=== PATIENT | female | born 1950 | race Two or more races ===

== ENCOUNTER 2017-01-25 23:50 | Inpatient (IN) | payer OTHER ==
--- NOTE | ~2017-01-25 | CN ---
Consultation Report [facility] [address] [place]. [address] NAME: ANÍBAL GATES : 52 STATUS : ADM IN PAT#: [id number] AGE: 66 ADM/REG DATE : 01/26/17 MR#: [id number] REPORT SERV DATE: 01/26/17 DICTATED BY: MART FLORES DATE: 01/26/17 REPORT STATUS : Draft TRANSCRIBED BY: MODL DATE: 01/26/17 GI CONSULTATION DATE OF CONSULTATION: 01/26/2017 REASON FOR CONSULTATION: Recurrent C difficile. HISTORY OF PRESENT ILLNESS: Ms. Aníbal Gates is a 66-year-old female patient, who had originally been seen by Dr. Tan over at [facility] in 11/2016 for lower GI bleeding. She presents to [facility] today with recurrent abdominal pain, nausea with vomiting. During her hospitalization at [facility], she underwent a colonoscopy on 12/05/[address] Tan, showed some diverticulosis, mild nonspecific colitis and internal hemorrhoids. Biopsies were taken, which showed no definite chronic colitis. C difficile tests at that point in time were negative; however, she suffered a prolonged hospitalization in 12/2016. On 12/30/2016, she was still inpatient, diarrhea had returned, and she tested positive for C difficile at that point in time. It appears by review of records, she was treated with Flagyl as well as looking at the records, it looks like she had C difficile positivity in early 11/2016 and was treated with Flagyl. It is hard to obtain much history from Ms. Gates. Presently, she is nauseous. She is spitting up white phlegm and complains of abdominal discomfort in the epigastric periumbilical region. She did have a CT scan done on admission, which was noncontrasted, which shows extensive advanced atherosclerotic changes, body anasarca, trace pleural fluid on the right with some ascites, bibasilar atelectasis, cardiomegaly, moderate sized hiatal hernia. No GI or obstruction. She had a colon wall which was thickened, suggesting a low protein state versus less likely colitis. However, secondary to her history of C difficile and recurrent diarrhea, her stool was checked again for C difficile in the emergency room and was found to be positive. Subsequently, she was admitted. She does have a history of type 2 diabetes, poorly controlled; end-stage renal disease, presently undergoing hemodialysis; as well as cardiac arrest, hepatitis C. I have discussed with the patient. We will plan to add IV Flagyl to the regimen of vancomycin. I will also obtain a mesenteric ultrasound to rule out any mesenteric ischemia as contributing to her abdominal pain. Infectious Disease has also been consulted to see her for the questionable possibility of stool transplantation. PAST MEDICAL HISTORY: Positive for recurrent C difficile colitis, hepatitis C, end-stage renal disease with dialysis dependence, hypertensive nephrosclerosis, type 2 diabetes, diabetic neuropathy, cardiac arrest x2, mild anoxic brain injury status post cardiac arrest, pericardial effusion, pericardiocentesis, hyperlipidemia, peripheral vascular disease with a left emdqa-hdm-iyby amputation, C difficile, and hypothyroidism. SURGICAL HISTORY: Unable to be obtained. SOCIAL HISTORY: Currently lives with her daughter. No current alcohol, tobacco, or illicit. FAMILY HISTORY: Noncontributory from a GI standpoint. Consultation Report [address] [address] NAME: ANÍBAL GATES : 52 STATUS : ADM IN [facility]#: [id number] AGE: 66 ADM/REG DATE : 01/26/17 MR#: [id number] REPORT SERV DATE: 01/26/17 DICTATED BY: MART FLORES DATE: 01/26/17 REPORT STATUS : Draft TRANSCRIBED BY: ADELITA DATE: 01/26/17 ALLERGIES: SHE HAS NO KNOWN ALLERGIES. HOME MEDICATIONS: Coreg, Bentyl, Benadryl, Pepcid, Neurontin, Lantus, Humalog, Synthroid, lidocaine cream, Imodium, Singulair, Endocet, Renvela, and Restoril. REVIEW OF SYSTEMS: Somewhat limited secondary to the patient's ill status, chronic nausea, vomiting, crying out in abdominal pain. PHYSICAL EXAMINATION: VITAL SIGNS: She has a temperature of 97.4, pulse of 101, respirations 18, blood pressure 153/69. NEURO: Reveals a very ill-appearing female resting in bed. GENERAL: She is in distress. She is semi-cooperative. She is in distress secondary to nausea. She is also spitting up bile. She is awake and alert, unable to assess orientation at this time. HEAD, EARS, EYES, NOSE, AND THROAT: Anicteric. Pupils equal, round, reactive to light and accommodation. Normocephalic and atraumatic. NECK: Supple. No JVD. LUNGS: Diminished with poor inspiratory effort noted. CARDIOVASCULAR SYSTEM: Regular rate and rhythm, but tachycardic. ABDOMEN: Soft and nondistended with mild tenderness to palpation to the periumbilical area. She has hypoactive bowel sounds. No organomegaly appreciated. EXTREMITIES: Notable for left BKA. SKIN: Dry and intact. PERTINENT LABORATORY DATA: Sodium 136, potassium 3.6, BUN is 17, creatinine is 3.43. White count 15.4, hemoglobin 9.8, hematocrit 31.5. CO2 is 21. Total bilirubin is 0.2, alkaline phosphatase 205, ALT 10, AST 16, lipase 47. ASSESSMENT: 1. Recurrent Clostridium difficile. 2. Abdominal pain. 3. Nausea with vomiting. 4. End-stage renal disease, on dialysis. 5. Peripheral vascular disease, with history of left byasx-clv-xjse amputation. 6. Type 2 diabetes, poor controlled. 7. History of cardiac arrest x2, with mild anoxic brain injury. 8. Hepatitis C. PLAN: 1. Continue vanco, add IV Flagyl. 2. Schedule Zofran. 3. Clear liquid diet, advance as tolerated. Consultation Report [address] [address] NAME: ANÍBAL GATES : 52 STATUS : ADM IN [facility]#: [id number] AGE: 66 ADM/REG DATE : 01/26/17 MR#: [id number] REPORT SERV DATE: 01/26/17 DICTATED BY: MART FLORES DATE: 01/26/17 REPORT STATUS : Draft TRANSCRIBED BY: ADELITA DATE: 01/26/17 4. Mesenteric ultrasound to rule out any mesenteric ischemia as a culprit of abdominal pain. 5. Bentyl. 6. Increase her Pepcid to b.i.d. We will follow. YOLY/ADELITA BARBARA Gomez / [id number] CC: Maikel Puentes M.D.
--- NOTE | ~2017-01-25 | HP ---
History And Physical [address] [place]. [address] NAME: ANÍBAL GATES : 52 STATUS : ADM IN [facility]#: [id number] AGE: 66 ADM/REG DATE : 01/26/17 MR#: [id number] REPORT SERV DATE: 01/26/17 DICTATED BY: DATE: REPORT STATUS : Draft TRANSCRIBED BY: MODL DATE: 01/26/17 DATE OF ADMISSION: 01/26/2017 CHIEF COMPLAINT: Abdominal pain, diarrhea, nausea, vomiting. HISTORY OF PRESENT ILLNESS: Ms Gates is a 66-year-old female, who dialyzes Wednesday, Wednesday, Wednesday at [facility]. She moved here from [place] in November and since has been in the hospital at [facility], [place], operated by [facility], and looks like she has had C. diff in November and December. Just prior to the move in 10/2016, she had a prolonged hospitalization with cardiac arrest x2 in October, pericardial effusion, pericardiocentesis. Since being here, she has had C. diff during hospitalization. She has also had pneumonia followed by pleural effusion, was just released a couple weeks ago from [facility]. During that hospitalization, she had thoracentesis and chest tube placement. She presents back to the emergency department yesterday and the report is three to four weeks of nausea, vomiting, diarrhea, and abdominal pain. After discussing with the patient, it seems like the nausea, vomiting have really been present for three to four days. She cannot really quantify how many stools she is having per day for me. She has ongoing nausea, vomiting throughout her exam and she reports subjective fevers. In the emergency department, her white blood cell count was elevated at 15,000. CT findings were nonspecific for some colitis. Her C. diff came back positive. PAST MEDICAL HISTORY: Recurrent C. diff, pneumonia, anemia, dementia, anoxic brain injury, peripheral vascular disease with left BKA, hypothyroidism, diabetes with neuropathy and gastroparesis, hypertension, cardiac arrest x2 in October, pericardial effusion, hyperlipidemia. SOCIAL HISTORY: She is . Born in [place]. Recently moved here from [place]. No tobacco, alcohol, or illicit drug use. ALLERGIES: NONE. FAMILY MEDICAL HISTORY: I could not obtain from the patient. MEDICATIONS: Coreg, Bentyl, Benadryl, Pepcid, Neurontin, Lantus, Humalog, Synthroid, EMLA cream, Imodium, Singulair, Endocet, Renvela, and Restoril. REVIEW OF SYSTEMS: 12-point review of systems obtained; however, the patient in significant pain and with no significant nausea during exam. PHYSICAL EXAMINATION: VITAL SIGNS: Temp 97.3, blood pressure 150/68, pulse 99, respiratory rate 18, O2 saturation is 97% on 2 L. GENERAL: This is an ill-appearing female. She is awake. She is oriented to place and person. HEENT: Normocephalic, atraumatic. Conjunctivae clear. Sclerae anicteric. Oral mucosa is History And Physical [address] [address] NAME: ANÍBAL GATES : 52 STATUS : ADM IN [facility]#: [id number] AGE: 66 ADM/REG DATE : 01/26/17 MR#: [id number] REPORT SERV DATE: 01/26/17 DICTATED BY: DATE: REPORT STATUS : Draft TRANSCRIBED BY: MODL DATE: 01/26/17 dry. NECK: No lymphadenopathy. Neck veins flat. RESPIRATIONS: Even and unlabored. Breath sounds clear to auscultation. HEART: Rate is regular. She has a faint systolic murmur. No rub or gallop. ABDOMEN: Soft with some mild diffuse tenderness. Bowel sounds are active. No masses or hepatosplenomegaly. BACK: I could not examine as she is currently on the dialysis machine. EXTREMITIES: She has a left BKA without any edema. No edema to the right. NEURO: No focal deficits. She moves about in bed throughout exam, all four extremities. SKIN: No unusual rashes, skin lesions. Mood and affect anxious, but appropriate. PERTINENT LAB AND X-RAYS FINDINGS: Her chest x-ray says fluid overload. On my evaluation, she does have some mild pulmonary edema. Sodium 136, potassium 3.6, chloride 99, CO2 of 21, BUN of 17, creatinine 3.4. Calcium 8.4, magnesium of 1.7, phosphorus 4. Albumin is 2.5. WBC is 15,000, H and H 9 and 28, platelets 496,000. CT of the abdomen with nonspecific findings; mild thickening, most likely colitis. C. diff positive. Her lactic acid was 0.9. IMPRESSION: 1. Abdominal pain. 2. Clostridium difficile colitis, recurrent. 3. Nausea, vomiting. 4. End-stage renal disease. 5. Type 2 diabetes with gastroparesis and neuropathy. 6. Peripheral vascular disease, left below-knee amputation. 7. Hypertension. 8. Status post cardiac arrest x2 in 10/2016. PLAN: Admit, p.o. vancomycin. Ask GI and ID to question if she needs a stool transplant given this recurrent C. diff. When asked if she completed antibiotic therapy, she states she does not know, so I do not know if this is due to failure of antibiotics versus incomplete therapy. Dialyze, antiemetics, pain medicines, usual medicines as appropriate. Further orders and recommendations pending clinical course. JEWELL/ADELITA BARBARA Kendrick / [id number] CC: Maikel Puentes M.D.
--- NOTE | ~2017-01-25 | DS ---
Discharge Summary [facility] [address] [place]. [address] NAME: ANÍBAL CELAYA : 52 STATUS : DIS IN PAT#: [id number] AGE: 66 ADM/REG DATE : 01/26/17 MR#: [id number] REPORT SERV DATE: 02/17/17 DICTATED BY: NIKITA ALEMAN DATE: 02/16/17 REPORT STATUS : Draft TRANSCRIBED BY: ADELITA DATE: 02/16/17 Data Collection from hospitalization DISCHARGE DIAGNOSES: 1. Abdominal pain-resolved. 2. Nausea, vomiting, and diarrhea-resolved. 3. Question of noncompliance. 4. History of below-knee amputation on the left. 5. Type 2 diabetes mellitus. 6. Hypertension. 7. Dementia. 8. Anemia. 9. History of anoxic brain injury. 10.Peripheral vascular disease. 11.Hypothyroidism. 12.Neuropathy. 13.Gastroparesis. 14.History of cardiac arrest x2. 15.Hyperlipidemia. CONSULTATION: BARBARA Gomez PROCEDURES PERFORMED: 1. CT scan of the abdomen and pelvis without contrast, 01/25/2017. 2. Mesenteric Doppler ultrasound, 01/27/2017. 3. Gallbladder ultrasound, 01/28/2017. 4. CT scan of the brain without contrast, 02/06/2017. MEDICATIONS: Coreg 6.25 mg twice a day, Bentyl 10 mg three times a day, Benadryl 25 mg at bedtime, Pepcid 20 mg every morning, Neurontin 100 mg twice a day, Lantus 12 units subcutaneously at bedtime, Humalog injection insulin as instructed, Synthroid 112 mcg every morning, lidocaine-prilocaine cream one application topically as instructed, Imodium 2 mg every four hours as needed, Singulair 10 mg every morning, Endocet 5/325 one to two tablets every four hours as needed, Renvela 800 mg with meals, Restoril 15 mg at bedtime, vancomycin 125 mg every six hours as instructed. CONDITION AT DISCHARGE: Stable. DISPOSITION: The patient was discharged home on a renal diet with activities as instructed. She would resume outpatient hemodialysis as scheduled. HOSPITAL COURSE: This is a 66-year-old female, who dialyzes on Mondays, Wednesdays, and Fridays. She moved here from [place] in November and had been in the hospital at [facility] [place], operated by [facility]. It looks as if she may have had C difficile in November and December. Just prior to her move in October 2016, she had a prolonged hospitalization with cardiac arrest x2, pericardial effusion, and pericardiocentesis. Since being here, she has had C difficile during a hospitalization. She also had pneumonia followed by pleural effusion. She had just been released a couple of weeks prior to this admission from [facility]. Discharge Summary [address] [place]. [address] NAME: ANÍBAL CELAYA : 52 STATUS : DIS IN PAT#: [id number] AGE: 66 ADM/REG DATE : 01/26/17 MR#: [id number] REPORT SERV DATE: 02/17/17 DICTATED BY: NIKITA ALEMAN DATE: 02/16/17 REPORT STATUS : Draft TRANSCRIBED BY: ADELITA DATE: 02/16/17 During that hospitalization, she had a thoracentesis and chest tube placement. She presented back to the emergency department at this time and the report was three to four weeks of nausea, vomiting, diarrhea, and abdominal pain. After a discussion, the patient felt the nausea and vomiting had been present for three to four days. She could not really quantify how many stools she was having per day. She had ongoing nausea and vomiting throughout her exam and she reported subjective fevers. In the emergency department, her white blood cell count was elevated at 15,000. CT scan of the abdomen and pelvis without contrast was performed. This revealed some colitis. C difficile came back positive. She was admitted to the hospital at this time for further evaluation and treatment. Upon admission, CT scan of the abdomen had shown nonspecific findings with mild thickening, most likely colitis. Lactic acid level was 0.9. Oral vancomycin was going to began. When asked if she had completed antibiotic therapy, she said she did not know. We did not know if this was due to failure of antibiotics versus incomplete therapy. She was going to be dialyzed and we would give the antiemetics, pain medication, and her usual medications as appropriate. She was seen by Mitul Loya regarding recurrent C difficile. IV Flagyl was added to her regimen of vancomycin. A mesenteric ultrasound was requested to rule out mesenteric ischemia. Zofran was going to be given as scheduled. She was placed on a clear liquid diet and this would be advanced as tolerated. Bentyl was going to be given. Pepcid was increased. Following day, she looked a little better. She had persistent nausea, but it had improved a little. She still complained of 10/10 abdominal pain. She reported left stooling. A mesenteric Doppler ultrasound was performed. IV Flagyl and IV Reglan were continued. Oral vancomycin was being tapered. It was felt that an infectious disease consult was not needed at this time. It was suggested that proton pump inhibitors be avoided as well as any unneeded antibacterials. She was evaluated by Physical Therapy. Nausea, abdominal pain, and diarrhea continued to improve. On 01/28/2017, gallbladder ultrasound was performed. Diarrhea had improved. She still had some belching and nausea. She did not want to undergo an EGD. Mesenteric ultrasound was negative. On 01/29/2017, she had only one loose stool. She was wanting to eat more. She had no complaints of abdominal pain. Ultrasound had shown gallbladder sludge. No cholecystitis was seen. Liver function tests were normal. A HIDA scan was going to be performed. She had several loose stools. Her nausea had improved. She was tolerating her diet better. She had no complaints of abdominal pain. Antibiotics were continued. On the , she did have some nausea. Long vancomycin taper continued. She did have some itching. On 02/03/2017, she had good pain control. Hemodialysis therapy was going to be performed. Reglan was discontinued. She was evaluated by Occupational Therapy. Over the next several days, she remained stable. She was wanting to go home. She did have a fall. Her abdominal pain had resolved. A CT scan of the brain without contrast was performed, this revealed atrophy. There was heavy basal ganglia calcification and question history of hyperparathyroidism. There was no evidence of intracranial bleed or trauma seen. Discharge instructions were given. Due to her improved and stable condition, she was discharged home to be followed by home health care with the above-stated instructions. Information collected by: Lucie Dailey Discharge Summary [address] [facility] [address] NAME: ANÍBAL CELAYA : 52 STATUS : DIS IN PAT#: [id number] AGE: 66 ADM/REG DATE : 01/26/17 MR#: [id number] REPORT SERV DATE: 02/17/17 DICTATED BY: NIKITA ALEMAN DATE: 02/16/17 REPORT STATUS : Draft TRANSCRIBED BY: ADELITA DATE: 02/16/17 I submit the above information as my discharge summary. NICOLE/ADELITA Nikita Aleman M.D. / [id number] CC: Maikel Puentes M.D. [place] BARBARA Loya
[2017-01-25 21:49] LABS: BASOPHILS 0.1 %; BASOPHILS ABSOLUTE 0.02 10/3/uL (0.0-0.16); EOSINOPHILS 0.4 %; EOSINOPHILS ABSOLUTE 0.09 10/3/uL (0.0-0.53); HEMATOCRIT 31.1 % (36.0-48.0); HEMOGLOBIN 9.7 g/dL (12.0-16.0); IMMATURE GRANULOCYTES 0.5 %; LYMPHOCYTES 5.3 %; LYMPHOCYTES ABSOLUTE 1.12 10/3/uL (0.67-4.30); MEAN CORPUS HGB CONC 31.2 g/dL (32.0-36.0); MEAN CORPUSCULAR HEMOGLOB 28.4 pg (26.0-34.0); MEAN CORPUSCULAR VOLUME 90.9 fL (80-100); MEAN PLATELET VOLUME 8.3 fL (9.2-13.0); MONOCYTES 6.3 %; MONOCYTES ABSOLUTE 1.34 10/3/uL (0.21-1.20); NEUTROPHILS 87.4 %; NEUTROPHILS ABSOLUTE 18.51 10/3/uL (2.02-8.40); PLATELET COUNT 509 10/3/uL (150-400); RBC DISTRIBUTION WIDTH 17.4 % (12.0-16.0); RED CELL COUNT 3.42 10/6/uL (4.0-5.6); WHITE BLOOD CELLS 21.2 10/3/uL (4.5-10.5)
[2017-01-25 21:50] LABS: MANUAL DIFF NO %
[2017-01-25 22:05] LABS: A/G RATIO 0.5 (0.7-1.9); ALBUMIN 2.7 G/DL (3.5-5.0); ALKALINE PHOSPHATASE 205 U/L (45-117); BUN (BLOOD UREA NITROGEN) 12 MG/DL (6-23); CALCIUM, SERUM 8.1 MG/DL (8.5-10.4); CHLORIDE, SERUM 98 MMOL/L (96-112); CO2 (CARBON DIOXIDE) 30 MMOL/L (24-34); GFR AFRICAN AMERICAN 20 ML/MIN (>=60); GFR NON AFRICAN AMERICAN 17 ML/MIN (>=60); GLOBULIN 5.3 G/DL (2.5-4.1); GLUCOSE, SERUM 125 MG/DL (60-99); SGOT(AST) 16 U/L (5-40); SGPT(ALT) 10 U/L (5-65); SODIUM, SERUM 135 MMOL/L (135-148); TOTAL BILIRUBIN 0.2 MG/DL (0-1.2)
[~2017-01-25 23:50] MED LIST: BEN25 PO; BENTYL10 PO; COREG6 PO; EMLA TOP; HUMALOG SC; IMOD PO; LEVEMIR SC; NEUR100 PO; PCET PO; PEP20 PO; RENVELA800 MG PO; REST15 PO; SINGULAIR1 PO; SYN112 PO
[2017-01-26 00:51] LABS: ALBUMIN 2.6 G/DL (3.5-5.0); ALKALINE PHOSPHATASE 195 U/L (45-117); DIRECT BILIRUBIN < 0.1 MG/DL (0.0-0.4); INDIRECT BILIRUBIN(NOT ORDER) 0.2 MG/DL (0.1-0.9); SGOT(AST) 16 U/L (5-40); SGPT(ALT) 7 U/L (5-65); TOTAL BILIRUBIN 0.3 MG/DL (0-1.2); TOTAL PROTEIN 7.5 G/DL (6.0-8.5)
[2017-01-26 00:53] LABS: LACTATE 0.9 MMOL/L (0.3-2.4)
[2017-01-26 08:03] LABS: BASOPHILS 0.1 %; BASOPHILS ABSOLUTE 0.01 10/3/uL (0.0-0.16); EOSINOPHILS 0.1 %; EOSINOPHILS ABSOLUTE 0.01 10/3/uL (0.0-0.53); HEMATOCRIT 31.9 % (36.0-48.0); HEMOGLOBIN 9.8 g/dL (12.0-16.0); IMMATURE GRANULOCYTES 0.5 %; IMMATURE GRANULOCYTES ABSOLUTE 0.08 10/3/uL (0.0-0.11); LYMPHOCYTES 7.4 %; LYMPHOCYTES ABSOLUTE 1.13 10/3/uL (0.67-4.30); MEAN CORPUS HGB CONC 30.7 g/dL (32.0-36.0); MEAN CORPUSCULAR HEMOGLOB 28.2 pg (26.0-34.0); MEAN CORPUSCULAR VOLUME 91.7 fL (80-100); MEAN PLATELET VOLUME 8.3 fL (9.2-13.0); MONOCYTES 1.2 %; MONOCYTES ABSOLUTE 0.19 10/3/uL (0.21-1.20); NEUTROPHILS 90.7 %; NEUTROPHILS ABSOLUTE 13.95 10/3/uL (2.02-8.40); PLATELET COUNT 496 10/3/uL (150-400); RBC DISTRIBUTION WIDTH 17.5 % (12.0-16.0); RED CELL COUNT 3.48 10/6/uL (4.0-5.6); WHITE BLOOD CELLS 15.4 10/3/uL (4.5-10.5)
[2017-01-26 08:04] LABS: MANUAL DIFF NO %
[2017-01-26 08:13] LABS: ALBUMIN 2.5 G/DL (3.5-5.0); BUN (BLOOD UREA NITROGEN) 17 MG/DL (6-23); CALCIUM, SERUM 8.4 MG/DL (8.5-10.4); CHLORIDE, SERUM 99 MMOL/L (96-112); CO2 (CARBON DIOXIDE) 21 MMOL/L (24-34); CREATININE 3.43 MG/DL (0.55-1.02); GFR AFRICAN AMERICAN 15 ML/MIN (>=60); GFR NON AFRICAN AMERICAN 13 ML/MIN (>=60); GLUCOSE, SERUM 212 MG/DL (60-99); POTASSIUM, SERUM 3.6 MMOL/L (3.5-5.3); SODIUM, SERUM 136 MMOL/L (135-148)
[2017-01-27 22:09] LABS: A/G RATIO 0.5 (0.7-1.9); ALBUMIN 2.8 G/DL (3.5-5.0); CALCIUM, SERUM 8.4 MG/DL (8.5-10.4); CHLORIDE, SERUM 104 MMOL/L (96-112); CO2 (CARBON DIOXIDE) 25 MMOL/L (24-34); GLOBULIN 5.5 G/DL (2.5-4.1); PHOSPHORUS, SERUM 4.5 MG/DL (2.5-4.5); SGPT(ALT) 7 U/L (5-65); SODIUM, SERUM 141 MMOL/L (135-148); TOTAL BILIRUBIN 0.4 MG/DL (0-1.2); TOTAL PROTEIN 8.3 G/DL (6.0-8.5)
[2017-01-27 22:10] LABS: BUN (BLOOD UREA NITROGEN) 23 MG/DL (6-23); CREATININE 4.77 MG/DL (0.55-1.02); GFR AFRICAN AMERICAN 10 ML/MIN (>=60); GFR NON AFRICAN AMERICAN 9 ML/MIN (>=60); GLUCOSE, SERUM 140 MG/DL (60-99); POTASSIUM, SERUM 3.9 MMOL/L (3.5-5.3)
[2017-01-27 22:11] LABS: ALKALINE PHOSPHATASE 191 U/L (45-117); DIRECT BILIRUBIN < 0.1 MG/DL (0.0-0.4); INDIRECT BILIRUBIN(NOT ORDER) 0.3 MG/DL (0.1-0.9)
[2017-01-27 22:13] LABS: SGOT(AST) 19 U/L (5-40)
[2017-01-28 01:47] LABS: BASOPHILS 0.1 %; BASOPHILS ABSOLUTE 0.02 10/3/uL (0.0-0.16); EOSINOPHILS 0 %; HEMATOCRIT 30.4 % (36.0-48.0); HEMOGLOBIN 9.3 g/dL (12.0-16.0); IMMATURE GRANULOCYTES 0.6 %; IMMATURE GRANULOCYTES ABSOLUTE 0.08 10/3/uL (0.0-0.11); LYMPHOCYTES 12.4 %; LYMPHOCYTES ABSOLUTE 1.72 10/3/uL (0.67-4.30); MEAN CORPUS HGB CONC 30.6 g/dL (32.0-36.0); MEAN PLATELET VOLUME 8.2 fL (9.2-13.0); MONOCYTES 7.3 %; MONOCYTES ABSOLUTE 1.02 10/3/uL (0.21-1.20); NEUTROPHILS 79.6 %; NEUTROPHILS ABSOLUTE 11.07 10/3/uL (2.02-8.40); PLATELET COUNT 419 10/3/uL (150-400); RBC DISTRIBUTION WIDTH 18.4 % (12.0-16.0); RED CELL COUNT 3.21 10/6/uL (4.0-5.6); WHITE BLOOD CELLS 13.9 10/3/uL (4.5-10.5)
[2017-01-28 01:48] LABS: MANUAL DIFF NO %; MEAN CORPUSCULAR VOLUME 94.7 fL (80-100)
[2017-01-28 08:44] LABS: BASOPHILS 0.1 %; BASOPHILS ABSOLUTE 0.02 10/3/uL (0.0-0.16); EOSINOPHILS 0.1 %; EOSINOPHILS ABSOLUTE 0.01 10/3/uL (0.0-0.53); HEMOGLOBIN 9.3 g/dL (12.0-16.0); IMMATURE GRANULOCYTES 1.1 %; LYMPHOCYTES 5.1 %; LYMPHOCYTES ABSOLUTE 0.92 10/3/uL (0.67-4.30); MEAN CORPUSCULAR HEMOGLOB 28.6 pg (26.0-34.0); MEAN CORPUSCULAR VOLUME 92.3 fL (80-100); MEAN PLATELET VOLUME 8.3 fL (9.2-13.0); MONOCYTES 4.7 %; MONOCYTES ABSOLUTE 0.84 10/3/uL (0.21-1.20); NEUTROPHILS 88.9 %; NEUTROPHILS ABSOLUTE 16.01 10/3/uL (2.02-8.40); PLATELET COUNT 464 10/3/uL (150-400); RBC DISTRIBUTION WIDTH 18.5 % (12.0-16.0); RED CELL COUNT 3.25 10/6/uL (4.0-5.6)
[2017-01-28 08:45] LABS: MANUAL DIFF NO %
[2017-01-28 08:51] LABS: INTERNATIONAL NORMAL RATI 1.1 UNITS (-)
[2017-01-28 09:01] LABS: ALBUMIN 2.6 G/DL (3.5-5.0); CALCIUM, SERUM 7.8 MG/DL (8.5-10.4); CHLORIDE, SERUM 104 MMOL/L (96-112); CO2 (CARBON DIOXIDE) 27 MMOL/L (24-34); CREATININE 5.22 MG/DL (0.55-1.02); GFR AFRICAN AMERICAN 9 ML/MIN (>=60); GFR NON AFRICAN AMERICAN 8 ML/MIN (>=60); PHOSPHORUS, SERUM 4.2 MG/DL (2.5-4.5); POTASSIUM, SERUM 3.6 MMOL/L (3.5-5.3); SODIUM, SERUM 141 MMOL/L (135-148)
[2017-01-28 09:02] LABS: BUN (BLOOD UREA NITROGEN) 27 MG/DL (6-23); GLUCOSE, SERUM 221 MG/DL (60-99)
[2017-01-29 07:52] LABS: ALBUMIN 2.3 G/DL (3.5-5.0); TOTAL BILIRUBIN 0.3 MG/DL (0-1.2)
[2017-01-29 07:53] LABS: DIRECT BILIRUBIN 0.1 MG/DL (0.0-0.4); INDIRECT BILIRUBIN(NOT ORDER) 0.2 MG/DL (0.1-0.9); TOTAL PROTEIN 6.6 G/DL (6.0-8.5)
[2017-01-30 14:17] LABS: BASOPHILS 0.2 %; BASOPHILS ABSOLUTE 0.02 10/3/uL (0.0-0.16); EOSINOPHILS 0.2 %; EOSINOPHILS ABSOLUTE 0.03 10/3/uL (0.0-0.53); HEMATOCRIT 28.4 % (36.0-48.0); HEMOGLOBIN 8.9 g/dL (12.0-16.0); IMMATURE GRANULOCYTES 0.5 %; IMMATURE GRANULOCYTES ABSOLUTE 0.07 10/3/uL (0.0-0.11); LYMPHOCYTES 13.6 %; LYMPHOCYTES ABSOLUTE 1.79 10/3/uL (0.67-4.30); MEAN CORPUS HGB CONC 31.3 g/dL (32.0-36.0); MEAN CORPUSCULAR HEMOGLOB 28.9 pg (26.0-34.0); MEAN CORPUSCULAR VOLUME 92.2 fL (80-100); MEAN PLATELET VOLUME 8.8 fL (9.2-13.0); MONOCYTES 8.1 %; MONOCYTES ABSOLUTE 1.07 10/3/uL (0.21-1.20); NEUTROPHILS 77.4 %; NEUTROPHILS ABSOLUTE 10.21 10/3/uL (2.02-8.40); RED CELL COUNT 3.08 10/6/uL (4.0-5.6); WHITE BLOOD CELLS 13.2 10/3/uL (4.5-10.5)
[2017-01-30 14:20] LABS: MANUAL DIFF NO %; PLATELET COUNT 243 10/3/uL (150-400)
[2017-01-30 14:36] LABS: ALBUMIN 2.3 G/DL (3.5-5.0); BUN (BLOOD UREA NITROGEN) 27 MG/DL (6-23); CALCIUM, SERUM 7.7 MG/DL (8.5-10.4); CHLORIDE, SERUM 101 MMOL/L (96-112); CO2 (CARBON DIOXIDE) 24 MMOL/L (24-34); CREATININE 5.37 MG/DL (0.55-1.02); GFR AFRICAN AMERICAN 9 ML/MIN (>=60); GFR NON AFRICAN AMERICAN 8 ML/MIN (>=60); GLUCOSE, SERUM 201 MG/DL (60-99); PHOSPHORUS, SERUM 1.6 MG/DL (2.5-4.5); POTASSIUM, SERUM 4.2 MMOL/L (3.5-5.3); SODIUM, SERUM 135 MMOL/L (135-148)
[2017-02-01 14:11] LABS: BASOPHILS 0.1 %; BASOPHILS ABSOLUTE 0.01 10/3/uL (0.0-0.16); HEMATOCRIT 27.1 % (36.0-48.0); HEMOGLOBIN 8.5 g/dL (12.0-16.0); IMMATURE GRANULOCYTES 0.4 %; IMMATURE GRANULOCYTES ABSOLUTE 0.04 10/3/uL (0.0-0.11); LYMPHOCYTES 13.8 %; LYMPHOCYTES ABSOLUTE 1.39 10/3/uL (0.67-4.30); MEAN CORPUS HGB CONC 31.4 g/dL (32.0-36.0); MEAN CORPUSCULAR VOLUME 92.5 fL (80-100); MEAN PLATELET VOLUME 8.9 fL (9.2-13.0); MONOCYTES 10.2 %; MONOCYTES ABSOLUTE 1.03 10/3/uL (0.21-1.20); NEUTROPHILS 74.5 %; NEUTROPHILS ABSOLUTE 7.53 10/3/uL (2.02-8.40); PLATELET COUNT 280 10/3/uL (150-400); RBC DISTRIBUTION WIDTH 18.3 % (12.0-16.0); RED CELL COUNT 2.93 10/6/uL (4.0-5.6); WHITE BLOOD CELLS 10.1 10/3/uL (4.5-10.5)
[2017-02-01 14:12] LABS: MANUAL DIFF NO %
[2017-02-01 14:26] LABS: ALBUMIN 2.3 G/DL (3.5-5.0); BUN (BLOOD UREA NITROGEN) 23 MG/DL (6-23); CHLORIDE, SERUM 104 MMOL/L (96-112); CO2 (CARBON DIOXIDE) 26 MMOL/L (24-34); CREATININE 5.27 MG/DL (0.55-1.02); GFR AFRICAN AMERICAN 9 ML/MIN (>=60); GFR NON AFRICAN AMERICAN 8 ML/MIN (>=60); GLUCOSE, SERUM 100 MG/DL (60-99); PHOSPHORUS, SERUM 2.1 MG/DL (2.5-4.5); POTASSIUM, SERUM 4.1 MMOL/L (3.5-5.3); SODIUM, SERUM 137 MMOL/L (135-148)
[2017-02-02 06:40] LABS: ALBUMIN 2.1 G/DL (3.5-5.0); CALCIUM, SERUM 7.6 MG/DL (8.5-10.4); CHLORIDE, SERUM 104 MMOL/L (96-112); CO2 (CARBON DIOXIDE) 27 MMOL/L (24-34); PHOSPHORUS, SERUM 2.1 MG/DL (2.5-4.5); POTASSIUM, SERUM 4.5 MMOL/L (3.5-5.3); SODIUM, SERUM 137 MMOL/L (135-148)
[2017-02-02 06:41] LABS: BUN (BLOOD UREA NITROGEN) 12 MG/DL (6-23); CREATININE 3.27 MG/DL (0.55-1.02); GFR AFRICAN AMERICAN 16 ML/MIN (>=60); GFR NON AFRICAN AMERICAN 14 ML/MIN (>=60); GLUCOSE, SERUM 243 MG/DL (60-99)
[2017-02-02 06:44] LABS: BASOPHILS 0.1 %; BASOPHILS ABSOLUTE 0.01 10/3/uL (0.0-0.16); EOSINOPHILS 1.2 %; EOSINOPHILS ABSOLUTE 0.08 10/3/uL (0.0-0.53); HEMATOCRIT 29.4 % (36.0-48.0); IMMATURE GRANULOCYTES 0.7 %; IMMATURE GRANULOCYTES ABSOLUTE 0.05 10/3/uL (0.0-0.11); LYMPHOCYTES 20.4 %; LYMPHOCYTES ABSOLUTE 1.39 10/3/uL (0.67-4.30); MANUAL DIFF NO %; MEAN CORPUS HGB CONC 30.6 g/dL (32.0-36.0); MEAN CORPUSCULAR HEMOGLOB 28.9 pg (26.0-34.0); MEAN CORPUSCULAR VOLUME 94.5 fL (80-100); MEAN PLATELET VOLUME 9.1 fL (9.2-13.0); MONOCYTES 15.8 %; MONOCYTES ABSOLUTE 1.08 10/3/uL (0.21-1.20); NEUTROPHILS 61.8 %; NEUTROPHILS ABSOLUTE 4.21 10/3/uL (2.02-8.40); PLATELET COUNT 272 10/3/uL (150-400); RBC DISTRIBUTION WIDTH 18.4 % (12.0-16.0); RED CELL COUNT 3.11 10/6/uL (4.0-5.6); WHITE BLOOD CELLS 6.8 10/3/uL (4.5-10.5)
[2017-02-02 07:03] LABS: PLATELET ESTIMATE ADQ (ADEQUATE)
[2017-02-02 07:04] LABS: ANISOCYTOSIS 1+ (5-10/OIF) (0-5/OIF); HYPOCHROMIA 1+ (3-10/OIF) (0-2/OIF); POIKILOCYTOSIS 1+ (5-10/OIF) (0-5/OIF); POLYCHROMASIA 1+ (2-5/OIF) (0-1/OIF)
[2017-02-03 13:23] LABS: BASOPHILS 0 %; EOSINOPHILS 1.8 %; EOSINOPHILS ABSOLUTE 0.13 10/3/uL (0.0-0.53); HEMATOCRIT 28.6 % (36.0-48.0); IMMATURE GRANULOCYTES 0.4 %; IMMATURE GRANULOCYTES ABSOLUTE 0.03 10/3/uL (0.0-0.11); LYMPHOCYTES 23.6 %; LYMPHOCYTES ABSOLUTE 1.72 10/3/uL (0.67-4.30); MEAN CORPUS HGB CONC 31.5 g/dL (32.0-36.0); MEAN CORPUSCULAR HEMOGLOB 28.8 pg (26.0-34.0); MEAN CORPUSCULAR VOLUME 91.7 fL (80-100); MEAN PLATELET VOLUME 8.8 fL (9.2-13.0); MONOCYTES ABSOLUTE 0.73 10/3/uL (0.21-1.20); NEUTROPHILS 64.2 %; NEUTROPHILS ABSOLUTE 4.67 10/3/uL (2.02-8.40); PLATELET COUNT 312 10/3/uL (150-400); RED CELL COUNT 3.12 10/6/uL (4.0-5.6); WHITE BLOOD CELLS 7.3 10/3/uL (4.5-10.5)
[2017-02-03 13:26] LABS: MANUAL DIFF NO %
[2017-02-03 13:36] LABS: ALBUMIN 2.3 G/DL (3.5-5.0); CALCIUM, SERUM 7.6 MG/DL (8.5-10.4); CHLORIDE, SERUM 99 MMOL/L (96-112); CO2 (CARBON DIOXIDE) 26 MMOL/L (24-34); POTASSIUM, SERUM 4.5 MMOL/L (3.5-5.3); SODIUM, SERUM 133 MMOL/L (135-148)
[2017-02-03 13:40] LABS: BUN (BLOOD UREA NITROGEN) 23 MG/DL (6-23); CREATININE 4.84 MG/DL (0.55-1.02); GFR AFRICAN AMERICAN 10 ML/MIN (>=60); GFR NON AFRICAN AMERICAN 9 ML/MIN (>=60); GLUCOSE, SERUM 356 MG/DL (60-99)
[2017-02-03 13:41] LABS: PHOSPHORUS, SERUM 3.3 MG/DL (2.5-4.5)
[2017-02-04 06:21] LABS: HEMATOCRIT 31.3 % (36.0-48.0); HEMOGLOBIN 9.6 g/dL (12.0-16.0); MEAN CORPUS HGB CONC 30.7 g/dL (32.0-36.0); MEAN CORPUSCULAR HEMOGLOB 28.7 pg (26.0-34.0); MEAN CORPUSCULAR VOLUME 93.4 fL (80-100); MEAN PLATELET VOLUME 8.9 fL (9.2-13.0); PLATELET COUNT 317 10/3/uL (150-400); RBC DISTRIBUTION WIDTH 18.1 % (12.0-16.0); RED CELL COUNT 3.35 10/6/uL (4.0-5.6); WHITE BLOOD CELLS 5.1 10/3/uL (4.5-10.5)
[2017-02-04 06:22] LABS: MANUAL DIFF YES %
[2017-02-04 06:35] LABS: ALBUMIN 2.4 G/DL (3.5-5.0); CALCIUM, SERUM 7.9 MG/DL (8.5-10.4); CHLORIDE, SERUM 100 MMOL/L (96-112); CO2 (CARBON DIOXIDE) 27 MMOL/L (24-34); PHOSPHORUS, SERUM 2.9 MG/DL (2.5-4.5); POTASSIUM, SERUM 4.7 MMOL/L (3.5-5.3); SODIUM, SERUM 134 MMOL/L (135-148)
[2017-02-04 06:36] LABS: BUN (BLOOD UREA NITROGEN) 15 MG/DL (6-23); CREATININE 3.13 MG/DL (0.55-1.02); GFR AFRICAN AMERICAN 17 ML/MIN (>=60); GFR NON AFRICAN AMERICAN 15 ML/MIN (>=60); GLUCOSE, SERUM 223 MG/DL (60-99)
[2017-02-04 06:48] LABS: ANISOCYTOSIS 1+ (5-10/OIF) (0-5/OIF); BAND NEUTROPHILS 4 %; EOSINOPHILS 3 %; EOSINOPHILS ABSOLUTE (CALC) 0.15 10/3/uL (0.0-0.53); LYMPHOCYTES 30 %; LYMPHOCYTES ABSOLUTE (CALC) 1.53 10/3/uL (0.67-4.30); MONOCYTES 6 %; MONOCYTES ABSOLUTE (CALC) 0.31 10/3/uL (0.21-1.20); NEUTROPHILS ABSOLUTE (CALC) 3.11 10/3/uL (2.02-8.40); PLATELET ESTIMATE ADQ (ADEQUATE); POLYCHROMASIA 1+ (2-5/OIF) (0-1/OIF); SEGMENTED NEUTROPHIL (0) 57 %; TOTAL NUCLEATED CELLS 100
[2017-02-05 11:53] LABS: BASOPHILS 0.1 %; BASOPHILS ABSOLUTE 0.01 10/3/uL (0.0-0.16); EOSINOPHILS 3.1 %; EOSINOPHILS ABSOLUTE 0.23 10/3/uL (0.0-0.53); HEMOGLOBIN 8.8 g/dL (12.0-16.0); IMMATURE GRANULOCYTES 0.3 %; IMMATURE GRANULOCYTES ABSOLUTE 0.02 10/3/uL (0.0-0.11); LYMPHOCYTES 20.9 %; LYMPHOCYTES ABSOLUTE 1.53 10/3/uL (0.67-4.30); MEAN CORPUS HGB CONC 31.5 g/dL (32.0-36.0); MEAN CORPUSCULAR HEMOGLOB 28.9 pg (26.0-34.0); MEAN CORPUSCULAR VOLUME 91.8 fL (80-100); MEAN PLATELET VOLUME 9.1 fL (9.2-13.0); MONOCYTES 12.7 %; MONOCYTES ABSOLUTE 0.93 10/3/uL (0.21-1.20); NEUTROPHILS 62.9 %; NEUTROPHILS ABSOLUTE 4.59 10/3/uL (2.02-8.40); PLATELET COUNT 325 10/3/uL (150-400); RBC DISTRIBUTION WIDTH 17.7 % (12.0-16.0); RED CELL COUNT 3.04 10/6/uL (4.0-5.6)
[2017-02-05 11:54] LABS: HEMATOCRIT 27.9 % (36.0-48.0); MANUAL DIFF NO %; WHITE BLOOD CELLS 7.3 10/3/uL (4.5-10.5)
[2017-02-05 12:00] LABS: ALBUMIN 2.1 G/DL (3.5-5.0); CALCIUM, SERUM 7.7 MG/DL (8.5-10.4); CHLORIDE, SERUM 98 MMOL/L (96-112); CO2 (CARBON DIOXIDE) 27 MMOL/L (24-34); GFR AFRICAN AMERICAN 11 ML/MIN (>=60); GFR NON AFRICAN AMERICAN 9 ML/MIN (>=60); GLUCOSE, SERUM 238 MG/DL (60-99); PHOSPHORUS, SERUM 3.3 MG/DL (2.5-4.5); POTASSIUM, SERUM 5.2 MMOL/L (3.5-5.3); SODIUM, SERUM 128 MMOL/L (135-148)
[2017-02-05 12:01] LABS: BUN (BLOOD UREA NITROGEN) 34 MG/DL (6-23); CREATININE 4.66 MG/DL (0.55-1.02)
[2017-02-07] MEDS ORDERED: VANCOCIN HCL125 MG PO (13:07)
== END 2017-02-07 22:06 | disposition home health service (06) | DRG 371 ==
LOC: ER 23:50 → 2SO 01-26 02:18
PROVIDERS: Emergency Medicine; Internal Medicine Nephrology; Nurse Practitioner; Nurse Practitioner Family; Registered Nurse
DX: A04.7 Enterocolitis due to Clostridium difficile (principal); N18.6 End stage renal disease; N17.9 Acute kidney failure, unspecified; G93.1 Anoxic brain damage, not elsewhere classified; J96.11 Chronic respiratory failure with hypoxia; K31.84 Gastroparesis; E11.43 Type 2 diabetes mellitus with diabetic autonomic (poly)neuropathy; I12.0 Hypertensive chronic kidney disease with stage 5 chronic kidney disease or end stage renal disease; I50.9 Heart failure, unspecified; R11.2 Nausea with vomiting, unspecified; E11.22 Type 2 diabetes mellitus with diabetic chronic kidney disease; E11.65 Type 2 diabetes mellitus with hyperglycemia; E11.51 Type 2 diabetes mellitus with diabetic peripheral angiopathy without gangrene; B18.2 Chronic viral hepatitis C; Z99.2 Dependence on renal dialysis; Z86.74 Personal history of sudden cardiac arrest; Z89.512 Acquired absence of left leg below knee
CPT/HCPCS: 70450; 71010; 74176; 76705; 78227; 80053; 80069; 80076; 81001; 82140; 82248; 82962; 83605; 83690; 83735; 83880; 85025; 85610; 87040; 87493; 87493-59; 93975; 96374; 96375; 97110-GO; 97110-GP; 97116-GP; 97161-GP; 97165-GO; 97530-GP; 97535-GO; 99291; A9270-GY; A9537; G0257; J0360; J1170; J2405; J2550; J2765; J2805; J3475

== ENCOUNTER 2017-02-14 15:09 | Inpatient (IN) | payer OTHER ==
--- NOTE | ~2017-02-14 | DS ---
Discharge Summary [facility] [address] [place]. [address] NAME: ANÍBAL GATES : 52 STATUS : DIS IN PAT#: [id number] AGE: 66 ADM/REG DATE : 02/14/17 MR#: [id number] REPORT SERV DATE: 04/05/17 DICTATED BY: BARI SAMUEL DATE: 04/05/17 REPORT STATUS : Draft TRANSCRIBED BY: MODL DATE: 04/05/17 ADMISSION DATE: 02/14/2017 DISCHARGE DATE: 02/15/2017 DISCHARGE SUMMARY ( SUMMARY) DATE OF : 02/15/2017. HISTORY OF PRESENT ILLNESS: Ms. Gates was a 66-year-old female who originated from [place], who moved from [place] in [place] to [place] to be with her daughter. She has end-stage renal disease, dialyzes Wednesday, Wednesday, Wednesday at [facility]. She had a left upper arm AV fistula, which was maturing and was dialyzed through a left tunneled IJ hemodialysis catheter, which was due to be pulled the week of her admission. She has been admitted multiple times in the past to various hospitals in [place] for C diff colitis, was on a vancomycin taper down to 125 mg p.o. b.i.d., and no diarrhea at the time of admission. She was admitted though because of abdominal pain, which is recurrent and worsening. She has had evaluation in the past thinking it was most likely ischemic colitis from diffuse atherosclerotic cardiovascular disease. CT scan concerning an element of cholecystitis as well as fecal stasis was done, and on admission, she was febrile, white count was up to 23,000, and admitted to the hospital for further evaluation. PAST MEDICAL HISTORY: As above. Atherosclerotic cardiovascular disease, diffuse with history of anoxic brain injury at time of cardiac arrest in October; peripheral vascular disease, status post left below-knee amputation. As mentioned above, recurrent C diff colitis; history of pneumonia in the past; chronic anemia of end-stage renal disease; diabetes with gastroparesis, type 2 diabetes; and hyperlipidemia. She has been on dialysis now since arrival to [place]. Do not have record of how long she had been on dialysis in [place]. On admission, she defervesced and was taken to dialysis the next day. At dialysis, it was noted that her hemodialysis catheter and PermCath site was quite moist and draining some fluid. She was dialyzed through her left upper arm AV fistula and arrangements were made for removal of the catheter because it most likely was the source of her infection. She had her hemodialysis stopped. PermCath was removed with a lot of soupy drainage noted at that point, and hemodialysis was resumed. After resuming hemodialysis, she was stable for 30 minutes, after which she developed agonal breathing and a code was called. Sudden onset agonal breathing. Critical Care responded to the arrest, intubated and ventilated her, and moved her to ICU, but she continued to code, coded a total of five to six times that evening. The daughter who I tried to contact through her cell phone apparently did not have security police at her work place for her cell phone, and when she finally was contacted after work, she came immediately to the hospital and found her mother to be agonal in the CCU, and we coded her again after she arrived, but finally, there was no hope for recovery as she kept going into ventricular tachycardia and profound hypotension, and the daughter was at her bedside at the time of her demise. She was talked extensively by myself and by the critical care doctors, and finally called in the ball holder to visit with her, and we subsequently talked to her at home as she was quite upset about her mother dying and her not being present at the time of her getting ill that afternoon. I explained to her that the most likely source of this was the infected PermCath. She understood this and said Discharge Summary [id number] [facility] [place]. [address] NAME: ANÍBAL GATES : 52 STATUS : DIS IN [facility]#: [id number] AGE: 66 ADM/REG DATE : 02/14/17 MR#: [id number] REPORT SERV DATE: 04/05/17 DICTATED BY: BARI SAMUEL DATE: 04/05/17 REPORT STATUS : Draft TRANSCRIBED BY: ADELITA DATE: 04/05/17 her mother had multiple problems with MRSA in the past. Cultures at [facility] showed methicillin-resistant Staph aureus that were reported on the day after her , sensitive to vancomycin, which she was on at the time of her demise. DISCHARGE DIAGNOSES: 1. Abdominal pain, recurrent, sounded vascular to me, had been told in the past that she most likely had poor circulation to her bowels, but nothing could be done for this. 2. Diabetes mellitus, on insulin at the time of admission. 3. End-stage renal disease, hemodialysis Wednesday, Wednesday, Wednesday through PermCath until the AV fistula had matured and the PermCath was to be removed the day after admission as an outpatient. It was removed instead in inpatient as it was infected with suspected MRSA. 4. Hypothyroidism. 5. Recurrent C diff colitis, under control at time of admission. 6. History of coronary artery disease, with recurrent cardiac arrest post pulling the PermCath due to MRSA bacteremia and sepsis. Presumed source was the infected PermCath. She was unable to survive the multiple cardiac arrests and on the evening of 02/15/2017. CAUSE FOR : Cardiac arrest following MRSA sepsis. I was present at time of her demise and so was her daughter. BRITTANY/ADELITA Bari Samuel M.D. / [id number] CC: MD Roro Carolina M.D.
--- NOTE | ~2017-02-14 | OP ---
Record Of Operation [facility] [address] [place]. [address] NAME: ANÍBAL CELAYA : 52 STATUS : DIS IN PAT#: [id number] AGE: 66 ADM/REG DATE : 02/14/17 MR#: [id number] REPORT SERV DATE: 02/15/17 DICTATED BY: ROCK ANDERSON IV DATE: 02/15/17 REPORT STATUS : Draft TRANSCRIBED BY: ADELITA DATE: 02/15/17 DATE OF PROCEDURE: 02/15/2017 PROCEDURE: Laryngoscopic intubation with placement of orogastric tube. PREOPERATIVE DIAGNOSIS: Status post arrest which appeared to be primarily respiratory with persistent inadequate agonal respiratory pattern. POSTOPERATIVE DIAGNOSIS: Status post arrest which appeared to be primarily respiratory with persistent inadequate agonal respiratory pattern. PROCEDURE: Laryngoscopic intubation with placement of an orogastric tube. INDICATIONS: What appeared to be primary respiratory arrest. CONTRAINDICATIONS: None. CONSENT: No consent is obtained to lifesaving procedure and the patient is a full code. MAILROOM SUPERVISOR: Rock Anderson M.D. I responded to code blue. When I arrived in the room the patient was being Ambu bag ventilated. Respiratory Therapy was attempting intubation. I assumed head of the bed and the Ambu bag ventilation. All equipment was made available to include suction. Using a curved laryngoscopic blade on the GlideScope which was available vocal cords were easily visualized. A 7.5 endotracheal tube was advanced through the vocal cords on first pass without difficulty. There was appropriate color change with bilateral breath sounds heard. The tube was secured at 19 cm. Once the tube was secured, the orogastric tube was advanced and secured at 55 cm. There was appropriate flush over the abdomen. Both the chest x-ray and KUB had been ordered; however, because the patient repeatedly coded these were not obtained and were canceled near the end of her demise when daughter was at the bedside. There was no blood loss from either procedure. ARMAAN/ADELITA Rock Anderson IV, M.D. / [id number] CC: MD Roro Carolina M.D.
--- NOTE | ~2017-02-14 | HP ---
History And Physical [facility] [address] [place]. [address] NAME: ANÍBAL GATES : 52 STATUS : ADM IN [facility]#: [id number] AGE: 66 ADM/REG DATE : 02/14/17 MR#: [id number] REPORT SERV DATE: 02/15/17 DICTATED BY: REMI KHOURY DATE: 02/14/17 REPORT STATUS : Draft TRANSCRIBED BY: MODL DATE: 02/14/17 DATE OF ADMISSION: 02/14/2017 CHIEF COMPLAINT: Right upper quadrant abdominal pain, question cholecystitis, and sepsis. HISTORY OF PRESENT ILLNESS: Ms. Gates is a 66-year-old female, originally a [place], who recently moved to [place] from [place] in [place]. She has ESRD and dialyzes on a Wednesday, Wednesday, Wednesday basis at the [facility] through a left upper extremity AV fistula. She has a left tunneled IJ hemodialysis catheter that is due to be pulled tomorrow per her report. She has been hospitalized multiple times in the last few months at various hospitals in [place] for C. diff colitis, most recently at [facility] on 01/26/2017. She is on vancomycin taper and is down to 125 mg p.o. b.i.d. and states that her diarrhea has essentially resolved. She presents now having developed right upper quadrant abdominal pain yesterday, which is worsening and she reports a fever at home. She had a CT scan concerning for an element of cholecystitis as well as fecal stasis and white count of 23 without fever here at [facility] and was admitted with a GI consult pending. PAST MEDICAL HISTORY: Recurrent C. diff, pneumonia, anemia, dementia/anoxic brain injury after cardiac arrest in October on two occasions, peripheral vascular disease status post left BKA, hypothyroidism, diabetes with gastroparesis, pericardial effusion, dyslipidemia and of course, ESRD. MEDICATIONS: She has home medications that include carvedilol 6.25 mg b.i.d., Bentyl 10 mg t.i.d., Benadryl at night, Pepcid, gabapentin 100 mg b.i.d., Levemir 7 units at night, lispro t.i.d. with meals, levothyroxine 112 mcg daily, EMLA cream for her fistula, Imodium as needed, Singulair, nystatin cream, Percocet, pravastatin, Florastor, sevelamer 800 mg with meals, Restoril, and vancomycin 125 mg p.o. b.i.d. ALLERGIES: SHE HAS NO KNOWN DRUG ALLERGIES. FAMILY HISTORY: Negative for renal disease. SOCIAL HISTORY: Nonsmoker and nondrinker. REVIEW OF SYSTEMS: Reviewed and negative except for pertinent positives in the HPI. PHYSICAL EXAMINATION: VITAL SIGNS: Temperature is 98.3 with a pulse of 87, blood pressure of 116/49, O2 sat 96%. GENERAL: The patient is a white female, very pleasant, conversant, no immediate distress. HEENT: Her sclerae anicteric. Mucous membranes dry. NECK: No JVD appreciated. CARDIOVASCULAR: S1, S2. Regular rate and rhythm without murmurs, rubs, or gallops. LUNGS: Clear to auscultation. Normal work of breathing. EXTREMITIES: She has a left IJ tunneled dialysis catheter with mild redness. She has a History And Physical [address] [place]. [address] NAME: ANÍBAL GATES : 52 STATUS : ADM IN [facility]#: [id number] AGE: 66 ADM/REG DATE : 02/14/17 MR#: [id number] REPORT SERV DATE: 02/15/17 DICTATED BY: REMI KHOURY DATE: 02/14/17 REPORT STATUS : Draft TRANSCRIBED BY: ADELITA DATE: 02/14/17 left upper extremity AV fistula with good bruit and thrill that appears to mature. She has abdominal Cobb sign on my exam, but no rebound or guarding and no significant peripheral edema. LABORATORY DATA: Her labs include a sodium of 136, potassium 5.1, chloride 100, bicarb 28, BUN 37, creatinine 4.5, calcium 7.3. White count of 23, hemoglobin 8.4, platelets are 290, neutrophils 84%, [address] scan results, see HPI. ASSESSMENT AND PLAN: 1. Question cholecystitis and sepsis. GI consult. Cover with Zosyn. Risk of exacerbating Clostridium difficile discussed. We will minimize antibiotic use as able. Appreciate GI input. 2. End-stage renal disease, dialyzed tomorrow through fistula and likely pull PermCath in this admission. Check coags. 3. Diabetes. Hold insulin while n.p.o. 4. Hypothyroidism. Continue levothyroxine. 5. Recurrent Clostridium difficile. Continue oral vancomycin taper and continue Clostridium difficile precautions. 6. Admit to Nephrology. HEY/MODL Remi Khoury MD / [id number] CC: MD Roro Carolina M.D.
--- NOTE | ~2017-02-14 | OP ---
Record Of Operation [facility] [address] [place]. [address] NAME: ANÍBAL CELAYA : 52 STATUS : DIS IN PAT#: [id number] AGE: 66 ADM/REG DATE : 02/14/17 MR#: [id number] REPORT SERV DATE: 02/16/17 DICTATED BY: ROCK ANDERSON IV DATE: 02/15/17 REPORT STATUS : Draft TRANSCRIBED BY: ADELITA DATE: 02/15/17 DATE OF PROCEDURE: 02/15/2017 PREOPERATIVE DIAGNOSIS: Severe sepsis with repeated arrests with need for central access. POSTOPERATIVE DIAGNOSIS: Severe sepsis with repeated arrests with need for central access. PROCEDURE: Placement of a right femoral triple-lumen catheter. INDICATIONS: The patient is hemodynamically unstable with repeat codes with need for central access. INDICATIONS: Critically ill patient with inadequate IV access. CONTRAINDICATIONS: None. CONSENT: No consent is obtained as this is a lifesaving procedure. The patient was unable to provide consent and the family was not immediately available. LABORATORY DATA: The platelet count was 256,000. INR is 1.7, PTT is 36.4. STUDIO CAMERA OPERATOR: Rock Anderson M.D. METHOD: We had just completed resuscitation of the patient secondary to PA arrest, now on mechanical ventilator. The right groin was prepped with chlorhexidine and sterilely draped. The ultrasound unit was used to localize both the femoral artery and vein. A small skin incision was made and the introducer needle was advanced under ultrasound guidance into the vein with good venous blood flow. Guidewire was advanced without difficulty and using modified Seldinger technique, triple-lumen catheter was advanced over the guidewire and secured at the skin. There was good blood flow from all three ports. Blood was sent from this for chemistry and other lab value determinations. It was now used for resuscitation. Wasted blood was approximately 15 mL. Blood sent to lab was 20 mL. There were no other complications. ARMAAN/ADELITA Rock Anderson IV, M.D. / [id number] CC: MD Roro Carolina M.D.
--- NOTE | ~2017-02-14 | OP ---
Record Of Operation [facility] [address] [place]. [address] NAME: ANÍBAL CELAYA : 52 STATUS : DIS IN PAT#: [id number] AGE: 66 ADM/REG DATE : 02/14/17 MR#: [id number] REPORT SERV DATE: 02/16/17 DICTATED BY: ROCK ANDERSON IV DATE: 02/15/17 REPORT STATUS : Draft TRANSCRIBED BY: MODJuarez DATE: 02/15/17 DATE OF PROCEDURE: 02/15/2017 Left femoral arterial line note PREOPERATIVE DIAGNOSES: A critically ill patient with repeated PA arrest who has vasculopathy and difficulty obtaining blood pressure. POSTOPERATIVE DIAGNOSES: A critically ill patient with repeated PA arrest who has vasculopathy and difficulty obtaining blood pressure. PROCEDURE: Placement of a left femoral arterial line. CONTRAINDICATIONS: None. CONSENT: The patient was critically ill with attempts to resuscitation with family unavailable by phone per Nephrology and the patient unable to provide consent, this was medically necessary. PREOPERATIVE LABS: The patient's platelet count was 356,000, INR was 1.7, PTT was 36.4. FIBERGLASS AUTOBODY REPAIRER: Rock Anderson M.D. METHOD: The patient was in the supine position. The left groin was prepped with chlorhexidine and sterilely draped. The ultrasound unit was used under sterile technique to localize both the artery and vein. Using ultrasound guidance, the artery was entered. At this point, the patient had lost her pulse again and was coded. It appeared to be a good arterial blood, however, was difficulty passing the wire. When the catheter was advanced, there was arterial blood flow with very poor waveform. At the conclusion of this code, there was no good arterial blood from the catheter, so it was removed. As the patient regained her pulse, there was a hematoma formed with pressure provided. Using ultrasound guidance, just above the initial insertion site, the introducer needle was again advanced with good arterial blood flow and this time with excellent pulsatile flow. Using modified Seldinger technique, a guidewire was advanced with less difficulty at this time, and the catheter was advanced with good arterial blood flow. The catheter was advanced and sutured in place. It was used for hemodynamic monitoring and obtaining blood gases throughout the remainder of the attempted code. Wasted blood was approximately 10 mL. The patient otherwise tolerated the procedure. There was a hematoma formed but that did not enlarge with pressure. NM/ADELITA Rock Anderson IV, M.D. Record Of Operation [facility] [address] [place] [address] NAME: ANÍBAL CELAYA : 52 STATUS : DIS IN PAT#: [id number] AGE: 66 ADM/REG DATE : 02/14/17 MR#: [id number] REPORT SERV DATE: 02/16/17 DICTATED BY: ROCK ANDERSON IV DATE: 02/15/17 REPORT STATUS : Draft TRANSCRIBED BY: ADELITA DATE: 02/15/17 / [id number] CC: MD Roro Carolina M.D.
[~2017-02-14 15:09] MED LIST changes: +VANCOCIN HCL125 MG PO
[2017-02-14 17:00] LABS: BASOPHILS 0.3 %; BASOPHILS ABSOLUTE 0.06 10/3/uL (0.0-0.16); EOSINOPHILS 0 %; ER CBC TAT 0 Hrs 08 Mins; HEMATOCRIT 27.3 % (36.0-48.0); HEMOGLOBIN 8.4 g/dL (12.0-16.0); IMMATURE GRANULOCYTES 0.5 %; IMMATURE GRANULOCYTES ABSOLUTE 0.11 10/3/uL (0.0-0.11); LYMPHOCYTES 5.8 %; LYMPHOCYTES ABSOLUTE 1.33 10/3/uL (0.67-4.30); MANUAL DIFF NO %; MEAN CORPUS HGB CONC 30.8 g/dL (32.0-36.0); MEAN CORPUSCULAR HEMOGLOB 28.9 pg (26.0-34.0); MEAN CORPUSCULAR VOLUME 93.8 fL (80-100); MEAN PLATELET VOLUME 8.9 fL (9.2-13.0); MONOCYTES 4.4 %; MONOCYTES ABSOLUTE 1.02 10/3/uL (0.21-1.20); NEUTROPHILS ABSOLUTE 20.46 10/3/uL (2.02-8.40); PLATELET COUNT 290 10/3/uL (150-400); RED CELL COUNT 2.91 10/6/uL (4.0-5.6)
[2017-02-14 17:14] LABS: A/G RATIO 0.6 (0.7-1.9); ALBUMIN 2.5 G/DL (3.5-5.0); ALKALINE PHOSPHATASE 298 U/L (45-117); BUN (BLOOD UREA NITROGEN) 37 MG/DL (6-23); CALCIUM, SERUM 7.3 MG/DL (8.5-10.4); CHLORIDE, SERUM 100 MMOL/L (96-112); CO2 (CARBON DIOXIDE) 28 MMOL/L (24-34); CREATININE 4.56 MG/DL (0.55-1.02); GFR AFRICAN AMERICAN 11 ML/MIN (>=60); GFR NON AFRICAN AMERICAN 9 ML/MIN (>=60); GLOBULIN 4.2 G/DL (2.5-4.1); GLUCOSE, SERUM 268 MG/DL (60-99); POTASSIUM, SERUM 5.1 MMOL/L (3.5-5.3); SGOT(AST) 48 U/L (5-40); SGPT(ALT) 20 U/L (5-65); SODIUM, SERUM 136 MMOL/L (135-148); TOTAL BILIRUBIN 0.3 MG/DL (0-1.2); TOTAL PROTEIN 6.7 G/DL (6.0-8.5)
[2017-02-14 17:26] LABS: BAND NEUTROPHILS 5 %; ER DIFF TAT 0 Hrs 34 Mins; LYMPHOCYTES 7 %; LYMPHOCYTES ABSOLUTE (CALC) 1.61 10/3/uL (0.67-4.30); MONOCYTES 4 %; MONOCYTES ABSOLUTE (CALC) 0.92 10/3/uL (0.21-1.20); NEUTROPHILS ABSOLUTE (CALC) 20.47 10/3/uL (2.02-8.40); SEGMENTED NEUTROPHIL (0) 84 %; TOTAL NUCLEATED CELLS 100
[2017-02-14 17:27] LABS: ANISOCYTOSIS 1+ (5-10/OIF) (0-5/OIF); BASOPHILIC STIPPLING 1+ (2-5/OIF) (0-1/OIF); PLATELET ESTIMATE ADQ (ADEQUATE)
[2017-02-14 17:28] LABS: HYPOCHROMIA 1+ (3-10/OIF) (0-2/OIF)
[2017-02-14] MEDS ORDERED: NYSTATPOW TOP (20:36)
[2017-02-14] MEDS ORDERED: PRAVAC PO (20:36)
[2017-02-14] MEDS ORDERED: MYCOSCROI TOP (20:36)
[2017-02-14] MEDS ORDERED: FLORASTOR250 MG PO (20:36)
[2017-02-15 14:49] LABS: BASOPHILS 0.1 %; BASOPHILS ABSOLUTE 0.02 10/3/uL (0.0-0.16); EOSINOPHILS 0.1 %; EOSINOPHILS ABSOLUTE 0.01 10/3/uL (0.0-0.53); HEMATOCRIT 25.5 % (36.0-48.0); HEMOGLOBIN 7.9 g/dL (12.0-16.0); IMMATURE GRANULOCYTES 0.9 %; IMMATURE GRANULOCYTES ABSOLUTE 0.14 10/3/uL (0.0-0.11); LYMPHOCYTES 2.8 %; LYMPHOCYTES ABSOLUTE 0.44 10/3/uL (0.67-4.30); MEAN CORPUSCULAR HEMOGLOB 28.4 pg (26.0-34.0); MEAN CORPUSCULAR VOLUME 91.7 fL (80-100); MEAN PLATELET VOLUME 8.9 fL (9.2-13.0); MONOCYTES ABSOLUTE 0.47 10/3/uL (0.21-1.20); NEUTROPHILS 93.1 %; PLATELET COUNT 239 10/3/uL (150-400); RBC DISTRIBUTION WIDTH 16.5 % (12.0-16.0); RED CELL COUNT 2.78 10/6/uL (4.0-5.6); WHITE BLOOD CELLS 15.8 10/3/uL (4.5-10.5)
[2017-02-15 14:50] LABS: MANUAL DIFF NO %
[2017-02-15 15:00] LABS: A/G RATIO 0.6 (0.7-1.9); ALBUMIN 2.5 G/DL (3.5-5.0); CALCIUM, SERUM 7.8 MG/DL (8.5-10.4); CHLORIDE, SERUM 104 MMOL/L (96-112); CO2 (CARBON DIOXIDE) 27 MMOL/L (24-34); GLOBULIN 4.5 G/DL (2.5-4.1); SGOT(AST) 145 U/L (5-40); SGPT(ALT) 50 U/L (5-65); SODIUM, SERUM 139 MMOL/L (135-148); TOTAL BILIRUBIN 0.7 MG/DL (0-1.2)
[2017-02-15 15:01] LABS: ALKALINE PHOSPHATASE 244 U/L (45-117); BUN (BLOOD UREA NITROGEN) 29 MG/DL (6-23); CREATININE 3.61 MG/DL (0.55-1.02); GFR AFRICAN AMERICAN 15 ML/MIN (>=60); GFR NON AFRICAN AMERICAN 13 ML/MIN (>=60); GLUCOSE, SERUM 188 MG/DL (60-99); PHOSPHORUS, SERUM 2.3 MG/DL (2.5-4.5); POTASSIUM, SERUM 3.9 MMOL/L (3.5-5.3)
[2017-02-15 15:06] LABS: PARTIAL THROMBO TIME 36.4 SEC (22.5-37.2)
[2017-02-15 15:07] LABS: INTERNATIONAL NORMAL RATI 1.7 UNITS (-); PROTIME (NOT ORD) 19.7 SEC (12.0-14.5)
[2017-02-15 15:45] LABS: PROCALCITONIN 164.73 ng/mL (<0.5)
[2017-02-15 17:51] LABS: BE (BASE EXCESS) -11.9 MEQ/L (0 +/- 2.5); CARBOXYHEMOGLOBIN 0.9 % (0-3); HCO3 (ACTUAL BICARBONATE) 15.7 MEQ/L (23-27); HEMOBLOGIN CONTENT 6.2 G/DL (12-16); INSTRUMENT SERIAL # 35151; METHEMOGLOBIN 0.3 % (0-3); PCO2 (CO2 TENSION) 45 MMHG (35-45); PO2 (O2 TENSION) 176 MMHG (79-93); SAMPLE Arterial; TIDAL VOLUME 400 ML; pH 7.16 (7.37-7.43)
[2017-02-15 18:29] LABS: HEMOGLOBIN 7.1 g/dL (12.0-16.0); MEAN PLATELET VOLUME 10.2 fL (9.2-13.0); NUCLEATED RED BLOOD CELLS 0.1 /100WBC (0-0); RBC DISTRIBUTION WIDTH 17.8 % (12.0-16.0)
[2017-02-15 18:36] LABS: RED CELL COUNT 2.01 10/6/uL (4.0-5.6); WHITE BLOOD CELLS 29.1 10/3/uL (4.5-10.5)
[2017-02-15 18:37] LABS: HEMATOCRIT 18.7 % (36.0-48.0); MEAN CORPUSCULAR HEMOGLOB 35.3 pg (26.0-34.0); PLATELET COUNT 356 10/3/uL (150-400)
[2017-02-15 18:38] LABS: MANUAL DIFF YES %
[2017-02-15 19:59] LABS: ANISOCYTOSIS 1+ (5-10/OIF) (0-5/OIF); BAND NEUTROPHILS 20 %; IMMATURE GRANS ABSOLUTE (CALC) 1.16 10/3/uL (0.0-0.11); LYMPHOCYTES 29 %; LYMPHOCYTES ABSOLUTE (CALC) 8.44 10/3/uL (0.67-4.30); METAMYELOCYTES 4 %; MONOCYTES 1 %; MONOCYTES ABSOLUTE (CALC) 0.29 10/3/uL (0.21-1.20); NEUTROPHILS ABSOLUTE (CALC) 19.21 10/3/uL (2.02-8.40); PLATELET ESTIMATE ADQ (ADEQUATE); SEGMENTED NEUTROPHIL (0) 46 %; TOTAL NUCLEATED CELLS 100
== END 2017-02-15 18:30 | disposition expired | DRG 871 ==
LOC: ER 15:09 → 4SO 20:28 → CCU 02-15 16:59
PROVIDERS: Emergency Medicine; Internal Medicine Critical Care Medicine; Internal Medicine Nephrology; Registered Nurse
PROC: 5A1945Z Respiratory Ventilation, 24-96 Consecutive Hours (ICD-10-PCS; principal; 2017-02-15)
PROC: 0BH17EZ Insertion of Endotracheal Airway into Trachea, Via Natural or Artificial Opening (ICD-10-PCS; 2017-02-15)
PROC: 06HN33Z Insertion of Infusion Device into Left Femoral Vein, Percutaneous Approach (ICD-10-PCS; 2017-02-15)
PROC: B54CZZA Ultrasonography of Left Lower Extremity Veins, Guidance (ICD-10-PCS; 2017-02-15)
DX: A41.9 Sepsis, unspecified organism (principal); N18.6 End stage renal disease; G93.1 Anoxic brain damage, not elsewhere classified; A04.7 Enterocolitis due to Clostridium difficile; E11.22 Type 2 diabetes mellitus with diabetic chronic kidney disease; I12.0 Hypertensive chronic kidney disease with stage 5 chronic kidney disease or end stage renal disease; K81.9 Cholecystitis, unspecified; E11.43 Type 2 diabetes mellitus with diabetic autonomic (poly)neuropathy; K31.84 Gastroparesis; E03.9 Hypothyroidism, unspecified; D64.9 Anemia, unspecified; E78.5 Hyperlipidemia, unspecified; I25.2 Old myocardial infarction; Z99.2 Dependence on renal dialysis; Z89.512 Acquired absence of left leg below knee; Z79.84 Long term (current) use of oral hypoglycemic drugs; Z86.74 Personal history of sudden cardiac arrest
CPT/HCPCS: 31720; 36415; 36590; 36600; 71010; 74176; 76705; 80053; 80069; 82330; 82530; 82803; 82805; 82947; 82962; 83605; 83690; 83735; 84132; 84145; 84295; 85014; 85025; 85610; 85730; 86850; 86900; 86901; 86920; 87040; 87077; 87150; 87186; 92950; 93005; 94002; 96365; 96375; 99285; A9270-GY; G0257; J0153; J1170; J1720; J2405; J3370; P9047